=== PATIENT | female | born 1955 | race Caucasian/White ===

== ENCOUNTER 2024-08-17 08:15 | Emergency (ER) | payer MEDICAID, MEDICARE ==
[2024-08-17 08:37] VITALS: BP 147/78; PULSE 78
[2024-08-17] MEDS: Ketorolac 30 MG/ML SDV IM ONE (09:08)
== END 2024-08-17 10:27 | disposition home or self-care (01) ==
LOC: JP.ED 08:15
DX: S29.011A Strain of muscle and tendon of front wall of thorax, initial encounter (principal); Z88.2 Allergy status to sulfonamides; Z79.899 Other long term (current) drug therapy; X50.0XXA Overexertion from strenuous movement or load, initial encounter; Y93.89 Activity, other specified
CPT/HCPCS: 71046; 71046-26; 96372; 99283; J1885